=== PATIENT | female | born 1970 | race African-American/Black ===

== ENCOUNTER 2021-08-15 17:38 | Emergency (ER) | payer SELFPAY ==
[2021-08-15] MEDS ORDERED: LORazepam 2 MG/ML VIAL ONE (18:00)
[2021-08-15] MEDS ORDERED: ZIPRASIDONE MESYLA 20 MG/VIAL IM ONE (18:25)
[2021-08-15 18:26] LABS: Urine Blood 2+ (Negative); Urine Glucose Negative (Negative); Urine Protein Negative (Negative); Urine pH 5.5 (5.0-7.0)
[2021-08-15] MEDS ORDERED: WATER FOR INJ,STERILE 10 ML ONE (18:26)
[2021-08-15 18:48] LABS: Barbiturates NEGATIVE (NEGATIVE); Benzodiazepines NEGATIVE (NEGATIVE); Cocaine NEGATIVE (NEGATIVE); METHAMPHETAM NEGATIVE (NEGATIVE); Methadone NEGATIVE (NEGATIVE); Opiates NEGATIVE (NEGATIVE); Phencyclidine NEGATIVE (NEGATIVE); THC Cannibis NEGATIVE (NEGATIVE)
[2021-08-15] MEDS ORDERED: NA CHLORIDE 0.9% 1,000 ML ONE ×3 (18:53→20:43)
[2021-08-15 19:05] LABS: ALT/SGPT 19 U/L (12-78); AST/SGOT 14 U/L (15-37); Albumin 3.6 g/dL (3.4-5.0); Alkaline Phosphatase 78 U/L (45-117); BUN Blood Urea Nitrogen 4 mg/dL (7-18); Bicarbonate 25 mmol/L (21-32); Bilirubin Direct < 0.1 mg/dL (0-0.2); Bilirubin Total 0.2 mg/dL (0.2-1.0); Glucose Level 91 mg/dL (74-106); Potassium 3.2 mmol/L (3.5-5.1); Protein, Total 7.7 g/dL (6.4-8.2); Sodium Level 147 mmol/L (136-145)
[2021-08-15 19:06] LABS: Creatine Phosphokinase 90 U/L (26-192); Troponin I < 0.02 ng/mL (0.0-0.045)
[2021-08-15 19:19] LABS: Urine Bacteria 20-50 /HPF (<20); Urine Mucus 1+ /HPF (NONE SEEN)
[2021-08-15 19:25] LABS: Absolute Lymphocytes (CBC) 2.8 K/uL (0.7-4.9); Basophils % 0.7 % (0-1.3); Hematocrit 42.5 % (36.0-45.0); Lymphocytes % 62.2 % (15.3-44.8); MPV 8.9 fL (7.6-11.3); RBC Red Blood Cell Count 5.16 M/uL (3.86-4.86)
[2021-08-15 19:38] LABS: Protime INR 1.19
--- NOTE | 2021-08-15 19:58 | RAD REPORT ---
EXAM DESCRIPTION: CT - Head Brain Wo Cont - 08/15/2021 7:49 pm CLINICAL HISTORY: MENTAL STATUS CHANGE COMPARISON: No comparisons TECHNIQUE: All CT scans are performed using dose optimization technique as appropriate and may inclu de automated exposure control or mA/KV adjustment according to patient size. FINDINGS: No intracranial hemorrhage, hydrocephalus or extra-axial fluid collection.No areas of brai n edema or evidence of midline shift. The paranasal sinuses and mastoids are clear. The calvarium is intact. IMPRESSION: No acute intracranial abnormality.
[2021-08-15 20:22] LABS: Platelet Estimate ADEQ; White Blood Cell Scan OK (OK)
[2021-08-15 20:23] LABS: Blood Morphology Comment NOTED (NOT SEEN); Poikilocytosis 1+
[2021-08-15] MEDS ORDERED: KCL 20 MEQ/100 mL IVPB 20 MEQ/100 ML BAG IV ONE (20:38)
--- NOTE | 2021-08-16 03:50 | EDPHYS ---
Physician Documentation [facility] [place] Name: Maritza Alcala Age: 51 yrs Sex: Female : 1970 Arrival Date: 08/15/2021 Time: 17:39 Bed 4 Private MD: ED Physician Gasper Wang HPI: 08/15 17:40 This 51 yrs old Black Female presents to ER via Unassigned with complaints of Seizure. cp 17:40 The patient presents after having a single isolated seizure, that lasted an unknown cp period of time. Associated injury: The patient did not suffer any apparent associated injury. 17:40 Character of seizure(s): Loss of consciousness: the patient experienced loss of cp consciousness, unknown. 17:40 EMS care: none. cp 17:40 Current symptoms: agitated. cp - Social history:: Smoking status: Patient reports the use of cigarette tobacco products, Patient uses alcohol, on a daily basis. ROS: 17:45 Constitutional: Negative for fever, poor PO intake. cp 17:45 Cardiovascular: Negative for chest pain. cp 17:45 Neuro: Positive for altered mental status. cp 17:45 Unable to obtain ROS due to patient being uncooperative. Exam: 17:50 Constitutional: The patient appears alert, awake, non-diaphoretic, non-toxic, well cp developed, well nourished, unkempt. 17:50 Head/Face: Normocephalic, atraumatic. cp 17:50 Eyes: Pupils: equal, round, and reactive to light and accomodation, Conjunctiva: normal, no exudate, no injection, Sclera: no appreciated abnormality, Lids and lashes: appear normal, bilaterally. 17:50 ENT: External ear(s): are unremarkable, Nose: is normal, Mouth: Lips: moist, Oral mucosa: pink and intact, moist, Posterior pharynx: Airway: no evidence of obstruction, patent. 17:50 Neck: C-spine: vertebral tenderness, is not appreciated, crepitus, is not appreciated. 17:50 Chest/axilla: Inspection: normal, Palpation: is normal, no crepitus, no tenderness. 17:50 Cardiovascular: Rate: normal, Rhythm: regular. 17:50 Respiratory: the patient does not display signs of respiratory distress, Respirations: normal, no use of accessory muscles, no retractions, labored breathing, is not present, Breath sounds: are clear throughout, no decreased breath sounds. 17:50 Abdomen/GI: Inspection: abdomen appears normal, Palpation: abdomen is soft and non-tender, in all quadrants. 17:50 Neuro: Motor: moves all fours, strength is normal, Gait: is steady. 17:50 Psych: Behavior/mood is aggressive, uncooperative, Affect is animated. 18:05 ECG was reviewed by the Attending Physician. cp Vital Signs: 18:12 BP 99 / 66; Pulse 77; Resp 12; Pulse Ox 92% on R/A; tw5 18:34 BP 82 / 57; Pulse 74; Resp 14; Pulse Ox 94% on 2 lpm NC; tw5 18:48 BP 107 / 69; Pulse 63; Resp 14; Pulse Ox 95% on 2 lpm NC; tw5 19:50 BP 154 / 82; Pulse 62; Resp 18; Pulse Ox 97% on R/A; wg 20:30 BP 120 / 80; Pulse 66; Resp 17; Pulse Ox 96% on 2 lpm NC; Pain 0/10; dc2 21:37 BP 98 / 62; Pulse 78; Resp 16; Pulse Ox 100% on R/A; wg 22:24 BP 117 / 65; Pulse 72; Resp 16; Pulse Ox 98% on 2 lpm NC; Pain 0/10; dc2 23:20 BP 135 / 76; Pulse 76; Resp 16; Pulse Ox 97% on 2 lpm NC; Pain 0/10; dc2 /04 00:26 BP 139 / 78; Pulse 70; Resp 16; Pulse Ox 99% on R/A; wg 02:21 BP 132 / 76; Pulse 64; Resp 18; Pulse Ox 97% on R/A; Pain 0/10; wg 04:50 BP 128 / 70; Pulse 50; Resp 16; Pulse Ox 100% on R/A; wg 06:00 BP 130 / 68; Pulse 54; Resp 17; Temp 98.7; Pulse Ox 100% on R/A; Pain 0/10; wg MDM: 10 17:44 Patient medically screened. cp 18:00 Differential diagnosis: drug overdose, cardiac arrhythmia, seizure, illegal drug use, cp intoxication. 20:15 Data reviewed: vital signs, nurses notes, lab test result(s), EKG, radiologic studies, cp CT scan, I have discussed the patient's presentation/case with the attending Emergency Department Physician;. 08/15 17:46 Order name: Acetaminophen cp 08/15 17:46 Order name: Basic Metabolic Panel cp 08/15 17:46 Order name: CBC with Diff cp 08/15 17:46 Order name: ETOH Level cp 08/15 17:46 Order name: Hepatic Function cp 08/15 17:46 Order name: PT-INR cp 08/15 17:46 Order name: Ptt, Activated; Complete Time: 20:07 cp 08/15 17:46 Order name: Salicylate; Complete Time: 20:07 cp 08/15 17:46 Order name: Urine Drug Screen; Complete Time: 18:51 cp 08/15 17:46 Order name: Acetaminophen Level; Complete Time: 20:07 EDMS 08/15 20:07 Interpretation: Reviewed. cp 08/15 17:46 Order name: Basic Metabolic Panel; Complete Time: 20:07 EDMS 08/15 20:07 Interpretation: Normal except: NA 147; K 3.2; CL 113; BUN 4; GFR 87. cp 08/15 17:47 Order name: CBC with Automated Diff; Complete Time: 23:04 EDMS 08/15 20:08 Interpretation: Normal except: RBC 5.16; HGB 15.1; RDW 16.9; JESIKA% 29.0; LYM% 62.2; NEUT cp A 1.3. 08/15 17:47 Order name: Alcohol Serum/Plasma; Complete Time: 20:07 EDMS 08/15 20:08 Interpretation: Abnormal: ETOH 163. cp 08/15 17:47 Order name: Liver (Hepatic) Function; Complete Time: 20:07 EDMS 08/15 23:05 Interpretation: Normal except: AST 14; GLOB 4.1; A/G 0.9. cp 08/15 17:47 Order name: Protime (+INR); Complete Time: 20:07 EDMS 08/15 17:49 Order name: CK cp 08/15 18:00 Order name: CT Head Brain wo Cont; Complete Time: 20:07 cp 08/15 18:00 Order name: Troponin I cp 08/15 18:00 Order name: Urine Microscopic Only cp 08/15 18:01 Order name: Urine Microscopic Only; Complete Time: 20:07 EDMS 08/15 20:08 Interpretation: Normal except: URBC 5-10; UBACT 20-50; SQEPI 5-10. cp 08/15 18:26 Order name: Urine Dipstick-Ancillary; Complete Time: 18:51 EDMS 08/15 18:51 Interpretation: Normal except: UBLD 2+. cp 08/15 18:27 Order name: Urine --Ancillary (enter results); Complete Time: 20:07 tt3 08/15 18:29 Order name: Creatine Phosphokinase; Complete Time: 20:07 EDMS 08/15 18:29 Order name: Troponin I; Complete Time: 20:07 EDMS 08/15 19:21 Order name: Urine Culture EDMS 08/15 20:14 Order name: CBC Smear Scan; Complete Time: 23:04 EDMS 08/15 17:46 Order name: EKG; Complete Time: 17:47 cp 08/15 17:46 Order name: EKG - Nurse/Tech; Complete Time: 18:25 cp 08/15 17:46 Order name: IV Saline Lock; Complete Time: 18:25 cp 08/15 17:46 Order name: Labs collected and sent; Complete Time: 18:25 cp 08/15 17:46 Order name: Urine Dipstick-Ancillary (obtain specimen); Complete Time: 18:28 cp 08/15 17:46 Order name: Urine Test (obtain specimen); Complete Time: 18:28 cp 08/15 18:00 Order name: Urine Dipstick-Ancillary (obtain specimen); Complete Time: 18:28 cp EC:05 Rate is 88 beats/min. Rhythm is regular. WA interval is normal. QRS interval is normal. cp QT interval is normal. T waves are Inverted in lead aVL. Interpreted by me. Reviewed by me. Administered Medications: 18:00 Drug: Ativan (LORazepam) 2 mg Route: IM; Site: right deltoid; jd3 19:15 Follow up: Response: Patient is sedated dc2 18:11 Drug: Geodon (ziprasidone) 20 mg Route: IM; Site: left deltoid; jd3 18:50 Follow up: Response: Anxiety decreased; Blood pressure is lowered; RASS: Light sedation tw5 (-2) 18:33 Drug: NS 0.9% 1000 ml Route: IV; Rate: 1 bolus; Site: right hand; tw5 22:25 Follow up: IV Status: Completed infusion; IV Intake: 1000ml dc2 08/16 04:57 Follow up: IV Status: Completed infusion; IV Intake: 1000ml wg 08/15 18:49 Drug: NS 0.9% 1000 ml Route: IV; Rate: 1 bolus; Site: right hand; tw5 19:30 Follow up: IV Status: Completed infusion; IV Intake: 1000ml wg 21:00 Follow up: IV Status: Completed infusion; IV Intake: 1000ml dc2 18:54 CANCELLED (Duplicate Order): NS 0.9% 1000 ml IV at 1 bolus Per protocol; 1000 mL bolus tw5 20:19 Drug: Potassium Chloride 20 mEq Route: IV; Rate: calculated rate; Infused Over: 2 hrs; wg Site: right hand; 22:20 Follow up: IV Status: Completed infusion; IV Intake: 100ml wg 22:27 Follow up: IV Status: Completed infusion; IV Intake: 100ml dc2 Disposition: 08/16 04:00 Chart complete. cp 06:37 Co-signature as Attending Physician, Gasper Wang MD I agree with the assessment and [facility] plan of care. Disposition Summary: 08/16/21 03:49 Discharge Ordered Location: Home cp Problem: new cp Symptoms: have improved cp Condition: Stable cp Diagnosis - Alcohol use, unspecified with intoxication cp Followup: cp - With: Private Physician - When: 1 - 2 days - Reason: Recheck today's complaints Discharge Instructions: - Discharge Summary Sheet cp - Alcohol Intoxication cp Forms: - Medication Reconciliation Form cp - Thank You Letter cp - Antibiotic Education cp - Prescription Opioid Use cp Signatures: Dispatcher [employer] Gasper Torres MD MD cha Page, Corey, PA PA cp Forrest Hanna RN RN Erwin Mensah RN wg Wood, Tiffany tw5 Natalia, Deepti DEWITT dc2 Corrections: (The following items were deleted from the chart) 08/15 18:18 18:12 Social history: Smoking status: Patient reports the use of cigarette tobacco tw5 products, Patient/guardian denies using alcohol, tw5 18:26 17:46 Suicide Screening ([place]) ordered. cp iw 18:30 18:01 Troponin I ordered. EDMS EDMS 18:30 18:29 Alcohol Serum/Plasma ordered. EDMS EDMS 18:31 17:50 Creatine Phosphokinase ordered. EDMS EDMS 18:54 18:51 NS 0.9% 1000 ml IV at 1 bolus Per protocol; 1000 mL bolus ordered. cp tw5
--- NOTE | 2021-08-16 03:50 | ER ---
Nurse's Notes [facility] Name: Maritza Alcala Age: 51 yrs Sex: Female : 1970 Arrival Date: 08/15/2021 Time: 17:39 Bed 4 Private MD: Diagnosis: Alcohol use, unspecified with intoxication Presentation: 08/15 17:39 Chief complaint: EMS states: "Patient was found unresponsive outside. Sister was called tw5 and we were told that Maritza has a history of seizures and gets agitated afterwards". Coronavirus screen: Unable to assess at this time due to patients uncooperative nature. Ebola Screen: Unable to complete the Ebola screening because: The patient is disoriented. Initial Sepsis Screen: Does the patient meet any 2 criteria? Altered Mental Status. Does the patient have a suspected source of infection? No. Patient's initial sepsis screen is negative. Risk Assessment: Do you want to hurt yourself or someone else? Unable to obtain. Onset of symptoms is unknown. Activity prior to arrival: unresponsive. 17:39 Method Of Arrival: EMS: [facility] tw5 17:39 Acuity: WAYLON 3 tw5 Triage Assessment: 17:39 General: Appears unkempt, Behavior is agitated, anxious, combative, uncooperative. tw5 - Social history:: Smoking status: Patient reports the use of cigarette tobacco products, Patient uses alcohol, on a daily basis. Screenin:12 Abuse screen: Denies threats or abuse. Denies injuries from another. Nutritional tw5 screening: No deficits noted. Fall Risk Fall in past 12 months (25 points). Mental Status- Overestimates/Forgets Limitations (15 pts.). Assessment: 17:40 General: Patient placed in Trendelenburg . tw5 18:12 General: Appears unkempt, Behavior is agitated, anxious, combative, restless, tw5 uncooperative, Smells of alcohol, Patient was brought in by EMS. Patient kept screaming " You can not keep me here, I will ramses you!" Patient pushed her way out of the exam room into the hallway. Nursing staff was able to get patient back into the room when the patient stated that she was feeling dizzy. Patient promptly started screaming again "YOU ARE GOING TAKE ME TO ALF, YOU CANNOT KEEP ME HERE, YOU CANNOT KEEP ME HERE I WILL RAMSES YOU!" Patient was uncoperative with staff memembers and walked back into the [address] way. In front of the nurses station patient lowered herself to the floor, and started shaking. Reflexes intact. Nursing staff lifted patient into scretcher. After coming around patient continued to fight nursing staff about staying in the hospital. . Pain: Denies pain. Neuro: Level of Consciousness is confused, post ictal, Oriented to. Cardiovascular: Heart tones S1 S2 present. Respiratory: Airway is patent Trachea midline Respiratory effort is even, unlabored. : Urine is cloudy. 18:48 General: Behavior is drowsy. tw5 20:20 Reassessment: Pt sleeping. Pt was taken to CT and scan completed. wg 20:57 Reassessment: Pt resting with eyes closed, resp even and unlabored, audible snoring . dc2 Pt in NAD. Sister at side. VSS, Continue to monitor. 21:36 Reassessment: Patient appears in no apparent distress at this time. Patient and/or wg family updated on plan of care and expected duration. Pain level reassessed. Pt sleeping at this time. Family at bedside. Potassium IV infusing. 23:29 Reassessment: Patient appears in no apparent distress at this time. Pt sleeping. Family wg no longer at bedside. Pt arousable upon reassessment. 08/16 00:26 Reassessment: Patient appears in no apparent distress at this time. Patient and/or wg family updated on plan of care and expected duration. Pain level reassessed. Pt remains asleep with audible snoring. 02:24 Reassessment: Patient appears in no apparent distress at this time. Pt woke up and wg wanted to walk to BR. Pt assisted with semi-steady gait. Pt still a little sleepy from the medications. Pt moved her bowels and voided in BR. Pt hooked back up to monitor. Pt asking about her sister and I advised she was here and we would call her family in the morning. Pt layed back down. 04:48 Reassessment: Patient appears in no apparent distress at this time. Pt remains asleep wg and snoring. Pt is medically discharged and per the provider, pt can sleep until 0600 prior to going home to family. 06:02 Reassessment: Pt awake, alert \\T\\ oriented x4. Reviewed D/C instructions and pt wg verbalized understanding. Both IV's D/C'd. Contacted Pt's family and they will come to ED to pick patient up shortly. Pt waiting in room at this time. Vital Signs: 08/15 18:12 BP 99 / 66; Pulse 77; Resp 12; Pulse Ox 92% on R/A; tw5 18:34 BP 82 / 57; Pulse 74; Resp 14; Pulse Ox 94% on 2 lpm NC; tw5 18:48 BP 107 / 69; Pulse 63; Resp 14; Pulse Ox 95% on 2 lpm NC; tw5 19:50 BP 154 / 82; Pulse 62; Resp 18; Pulse Ox 97% on R/A; wg 20:30 BP 120 / 80; Pulse 66; Resp 17; Pulse Ox 96% on 2 lpm NC; Pain 0/10; dc2 21:37 BP 98 / 62; Pulse 78; Resp 16; Pulse Ox 100% on R/A; wg 22:24 BP 117 / 65; Pulse 72; Resp 16; Pulse Ox 98% on 2 lpm NC; Pain 0/10; dc2 23:20 BP 135 / 76; Pulse 76; Resp 16; Pulse Ox 97% on 2 lpm NC; Pain 0/10; dc2 04 00:26 BP 139 / 78; Pulse 70; Resp 16; Pulse Ox 99% on R/A; wg 02:21 BP 132 / 76; Pulse 64; Resp 18; Pulse Ox 97% on R/A; Pain 0/10; wg 04:50 BP 128 / 70; Pulse 50; Resp 16; Pulse Ox 100% on R/A; wg 06:00 BP 130 / 68; Pulse 54; Resp 17; Temp 98.7; Pulse Ox 100% on R/A; Pain 0/10; wg ED Course: 08/15 17:39 Patient arrived in ED. em1 17:39 Gapser Llanos PA is PHCP. cp 17:39 Family notified that patient is in ED. tw5 17:40 Gasper Wang MD is Attending Physician. cp 17:40 Appears agitated. Appears angry. Appears combative. tw5 17:40 Noise minimized. Warm blanket given. tw5 18:00 EKG done, by ED staff, reviewed by Gasper MISTRY. dh3 18:12 Tifafny Cain is Primary Nurse. tw5 18:12 Patient has correct armband on for positive identification. Bed in low position. Call tw5 light in reach. Side rails up X2. web ui designer on. Pulse ox on. NIBP on. 18:24 Appears to be sleeping. Awaiting lab results. tw5 18:24 Initial lab(s) drawn, by ED staff, Urine collected: clean catch specimen, cloudy. tw5 Inserted saline lock: 22 gauge in left hand, using aseptic technique. Oxygen administration via nasal cannula \\T\\ 2L/min. 18:25 Initial lab(s) drawn, by ne, sent to lab. iw 18:28 Urine Drug Screen Sent. dh3 18:28 Urine Microscopic Only Sent. dh3 18:48 Inserted saline lock: 22 gauge in right hand, using aseptic technique. tw5 18:50 Acetaminophen Sent. tw5 18:50 Basic Metabolic Panel Sent. tw5 18:50 CBC with Diff Sent. tw5 18:50 ETOH Level Sent. tw5 18:50 Hepatic Function Sent. tw5 18:50 PT-INR Sent. tw5 18:53 Triage completed. tw5 19:49 CT Head Brain wo Cont In Process Unspecified. EDMS 20:09 Troponin I Sent. wg 20:10 CK Sent. wg 20:10 Urine Culture Sent. wg 20:24 Urine Microscopic Only Sent. wg 20:53 Primary Nurse role handed off by Tiffany Cain wg 20:53 Erwin Enamorado, RN is Primary Nurse. wg 08/16 06:00 IV discontinued, intact, bleeding controlled, No redness/swelling at site. Pressure wg dressing applied. Administered Medications: 08/15 18:00 Drug: Ativan (LORazepam) 2 mg Route: IM; Site: right deltoid; jd3 19:15 Follow up: Response: Patient is sedated dc2 18:11 Drug: Geodon (ziprasidone) 20 mg Route: IM; Site: left deltoid; jd3 18:50 Follow up: Response: Anxiety decreased; Blood pressure is lowered; RASS: Light sedation tw5 (-2) 18:33 Drug: NS 0.9% 1000 ml Route: IV; Rate: 1 bolus; Site: right hand; tw5 22:25 Follow up: IV Status: Completed infusion; IV Intake: 1000ml dc2 08/16 04:57 Follow up: IV Status: Completed infusion; IV Intake: 1000ml 08/15 18:49 Drug: NS 0.9% 1000 ml Route: IV; Rate: 1 bolus; Site: right hand; tw5 19:30 Follow up: IV Status: Completed infusion; IV Intake: 1000ml wg 21:00 Follow up: IV Status: Completed infusion; IV Intake: 1000ml dc2 18:54 CANCELLED (Duplicate Order): NS 0.9% 1000 ml IV at 1 bolus Per protocol; 1000 mL bolus tw5 20:19 Drug: Potassium Chloride 20 mEq Route: IV; Rate: calculated rate; Infused Over: 2 hrs; Site: right hand; 22:20 Follow up: IV Status: Completed infusion; IV Intake: 100ml wg 22:27 Follow up: IV Status: Completed infusion; IV Intake: 100ml dc2 Intake: 19:30 IV: 1000ml; Total: 1000ml. 21:00 IV: 1000ml; Total: 2000ml. dc2 22:20 IV: 100ml; Total: 2100ml. 22:25 IV: 1000ml; Total: 3100ml. dc2 22:27 IV: 100ml; Total: 3200ml. dc2 08/16 04:57 IV: 1000ml; Total: 4200ml. Outcome: 03:49 Discharge ordered by MD. cp 06:01 Discharged to home ambulatory, with family. 06:01 Discharge instructions given to patient, Instructed on discharge instructions, follow up and referral plans. Demonstrated understanding of instructions, follow-up care, medications. 06:20 Patient left the ED. Signatures: Dispatcher [employer] EDRupal Barraza RN RN iw Martinez, Eric em1 Gasper Llanos PA PA cp Herrera, Deanna Forrest Guerrero RN RN jErwin Melgar RN Deepti Fisher RN RN [email or web address] Tiffany Cain tw5 Corrections: (The following items were deleted from the chart) 08/15 18:18 18:12 Social history: Smoking status: Patient reports the use of cigarette tobacco tw5 products, Patient/guardian denies using alcohol, tw5
[2021-08-16 06:42] VITALS: O2SAT 100
[2021-08-16 06:43] VITALS: BP 130/68; TEMP 98.7
--- NOTE | 2021-08-17 18:14 | EKG ---
Test Date: 2021-08-15 Test Time: 18:00:02 [place]: DONATO MEASUREMENT RESULTS: Intervals: Rate: 88 OK: 146 QRSD: 62 QT: 372 QTc: 450 [place]: P: 77 OK: 146 QRS: -4 T: 58 INTERPRETIVE STATEMENTS: Normal sinus rhythm with sinus arrhythmia Normal ECG No previous ECG available for comparison Electronically Signed On 08-17-21 18:06:28 CDT by Oseas Salazar
== END 2021-08-16 06:20 | disposition home or self-care (01) ==
LOC: ER 17:38
DX: F10.929 Alcohol use, unspecified with intoxication, unspecified (principal); F17.210 Nicotine dependence, cigarettes, uncomplicated
CPT/HCPCS: 36415; 70450; 80048; 80076; 80307; 80320; 80329; 81003; 81015; 81025; 82550; 84484; 85025; 85610; 85730; 87086; 87088; 93005; 96361; 96365; 96366; 96372; 99285; J3480; J3486; J7030